=== PATIENT | male | born 1955 | race Caucasian/White ===

== ENCOUNTER 2021-03-11 20:24 | Inpatient (IN) | payer OTHER ==
--- OUTSIDE RECORDS SUMMARY | 2021-03-11 20:27 | XMS REPORT | Continuity of Care Document ---
:1955 Author Organization [facility] Address [address] Gonzalez [address] [place] [id number] Care Team Providers Name Role Phone [phone] Primary Care Physician Unavailable SARBJIT Attending Clinician Unavailable SYSTEM, NOT IN Attending Clinician Unavailable Dustin Edwards MD Attending Clinician Barrington BLANK, K.H. Attending Clinician Pola BLANK Attending Clinician SARBJIT Admitting Clinician Unavailable Payers Payer Name Policy Type Policy Number Effective Date Expiration Date S giancarlo [employer] MED[employer]ARE PPO [id number] 00:00:00 Problems This patient has no known problems. Allergies, Adverse Reactions, Alerts This patient has no known allergies or adverse reactions. Medications This patient has no known medications. Procedures This patient has no known procedures. Encounters Start End Encounter Admission Attending Care Care Encounter Source Date/Time Date/Time Type Type Clinicians Facility Department ID 2020-02-12 Outpatient EL GALILEA SCHAFFER Dexter/Hep/Nu [id number] 09:28:28 KATHRYN perez 2020-01-23 Outpatient SYSTEM, GALILEA CALERO [id number] 12:24:18 PROVIDER Thiago perez 2021-02-11 2021-02-11 Refill MYLA Edwards [id number] 00:00:00 00:00:00 Primo Kimberly [id number] Dustin Santiago [id number] Profdaysi [phone] [address] 2021-02-04 2021-02-04 Refill [facility] [id number] 00:00:00 00:00:00 Primo Harris [id number] [facility] [id number] Professio [phone] [address] 2021-01-14 2021-01-14 [facility] [id number] 00:00:00 00:00:00 Primo Harris [id number] [facility] [id number] Professio [phone] [address] 2021-01-08 2021-01-08 [facility] [id number] 00:00:00 00:00:00 Nils Harris [id number] [place] [id number] Professio [phone] [address] 2021-01-07 2021-01-07 [facility] [id number] 00:00:00 00:00:00 Primo Harris [id number] [facility] [id number] Professio [phone] [address] 2020-12-25 2020-12-25 Telephone [facility] [id number] 00:00:00 00:00:00 Nils Harris [id number] [place] [id number] Professio [phone] [address] 2020-12-17 2020-12-17 Office [facility] [id number] 13:04:46 14:28:21 Visit Stan Harris [id number] [place] [id number] Professio [phone] [facility] 204 [facility] 2020-01-13 2020-01-13 Outpatient GALILEA GOTTLIEB/Hep/Nu [id number] 12:32:19 15:50:00 KATHRYN holland n Results This patient has no known results.
[2021-03-11 22:02] LABS: Basophils % 0.2 % (0-1.3); Hematocrit 28.1 % (39.6-49.0); Lymphocytes % 11.1 % (15.3-44.8); MPV 9.2 fL (7.6-11.3); RBC Red Blood Cell Count 3.07 M/uL (4.33-5.43)
[2021-03-11 22:24] LABS: Blood Morphology Comment NOTED (NOT SEEN); Hypochromasia 1+; Ovalocytes 1+; Platelet Estimate ADEQ; Stomatocytes 1+
[2021-03-11 22:26] LABS: Albumin 4.5 g/dL (3.4-5.0); Bilirubin Direct 0.4 mg/dL (0-0.2); Bilirubin Total 0.9 mg/dL (0.2-1.0); Potassium 4.4 mmol/L (3.5-5.1); Protein, Total 7.6 g/dL (6.4-8.2)
[2021-03-11] MEDS ORDERED: NA CHLORIDE 0.9% 1,000 ML ONE (23:51)
--- NOTE | 2021-03-12 00:26 | EDPHYS ---
Physician Documentation [facility] Name: Narendra Moulton Age: 65 yrs Sex: Male : 1955 Arrival Date: 03/11/2021 Time: 20:26 Bed 23 Private MD: ED Physician Cinda Barnard HPI: 03/12 00:18 This 65 yrs old Male presents to ER via Wheelchair with complaints of sp3 Black/Tarry Stools, Heat Exposure. 00:18 65-year-old male with a history of esophageal cancer currently in remission status post sp3 chemotherapy, hypertension, thyroid dysfunction presents with chief complaint fatigue, dark stools, and decreased energy. This has been going on for approximately 3 to 4 days. Patient also states that he has diffuse abdominal pain. Patient denies headache, neck pain, fever, URI symptoms, chest pain, shortness of breath, back pain, nausea, vomiting, diarrhea, syncope, neuro symptoms, rash, or any other ROS at this time. Remainder of ROS systems are negative.. Historical: - Allergies: 03/11 21:12 No Known Allergies; kg - Home Meds: 21:12 PreserVision AREDS 7,160 unit- 113 mg-100 unit oral tab daily [Active]; gabapentin 300 kg mg oral tab twice a day [Active]; Ambien 10 mg Oral tab 1 tab once daily [Active]; melatonin 10 mg Oral TbDi daily [Active]; acetaminophen 500 mg oral tab every 4-6 hours [Active]; Coricidin HBP Flu 2-15-500 mg oral tab [Active]; Alavert D-12 Allergy-Sinus 5-120 mg oral Tb12 1 tab 2 times per day [Active]; Lexapro 10 mg Oral tab 1 tab once daily [Active]; levothyroxine 88 mcg tab 1 tab once daily [Active]; aspirin 325 mg Oral tab 1 tab once daily [Active]; enalapril maleate 20 mg Oral tab 1 tab 2 times per day [Active]; Vitamin B-1 1000 mg oral TbER daily [Active]; fenofibrate 150 mg oral cap once daily [Active]; Therapeutic Multivit/Mineral Oral tab daily [Active]; omeprazole magnesium 20 mg oral cpDR daily [Active]; Coreg 6.25 mg Oral tab 1 tab 2 times per day [Active]; tamsulosin 0.4 mg oral cap 1 cap once daily [Active]; atorvastatin 20 mg oral tab 1 tab once daily [Active]; - PMHx: 21:12 CA Esophageal; HTN; Thyroid dysfunction; kg - PSHx: 21:12 Hydrocel repair; kg - Immunization history:: Adult Immunizations not up to date, Client reports having NOT received the Covid vaccine. - Social history:: Smoking status: Patient denies any tobacco usage or history of. Patient uses alcohol, on a daily basis. ROS: 03/12 00:20 Eyes: Negative for injury, pain, redness, and discharge, Neck: Negative for injury, sp3 pain, and swelling, Cardiovascular: Negative for chest pain, palpitations, and edema, Respiratory: Negative for shortness of breath, cough, wheezing, and pleuritic chest pain, Back: Negative for injury and pain, Skin: Negative for injury, rash, and discoloration, Neuro: Negative for headache, weakness, numbness, tingling, and seizure, Psych: Negative for depression, anxiety, suicide ideation, homicidal ideation, and hallucinations, Endocrine: Negative for neck swelling, polydipsia, polyuria, polyphagia, and marked weight changes. Constitutional: Positive for fatigue, Negative for body aches, chills, fever, weight loss. Abdomen/GI: Positive for abdominal pain, black/tarry stool, Negative for nausea and vomiting, hematemesis, bowel incontinence. Exam: 00:21 Constitutional: This is a well developed, well nourished patient who is awake, alert, sp3 and in no acute distress. Head/Face: Normocephalic, atraumatic. Eyes: Pupils equal round and reactive to light, extra-ocular motions intact. Lids and lashes normal. Conjunctiva and sclera are non-icteric and not injected. Cornea within normal limits. Periorbital areas with no swelling, redness, or edema. ENT: Nares patent. No nasal discharge, no septal abnormalities noted. External auditory canals are clear. Oropharynx with no redness, swelling, or masses, exudates, or evidence of obstruction, uvula midline. Mucous membranes moist. Neck: Trachea midline, no thyromegaly or masses palpated, and no cervical lymphadenopathy. Supple, full range of motion without nuchal rigidity, or vertebral point tenderness. No Meningismus. Chest/axilla: Normal chest wall appearance and motion. Nontender with no deformity. No lesions are appreciated. Cardiovascular: Regular rate and rhythm with a normal S1 and S2. No gallops, murmurs, or rubs. Normal PMI, no JVD. No pulse deficits. Respiratory: Lungs have equal breath sounds bilaterally, clear to auscultation and percussion. No rales, rhonchi or wheezes noted. No increased work of breathing, no retractions or nasal flaring. Abdomen/GI: Soft, non-tender, with normal bowel sounds. No distension or tympany. No guarding or rebound. No evidence of tenderness throughout. Back: No spinal tenderness. No costovertebral tenderness. Full range of motion. 00:21 Neuro: Awake and alert, GCS 15, oriented to person, place, time, and situation. Cranial nerves II-XII grossly intact. Motor strength 5/5 in all extremities. Sensory grossly intact. Cerebellar exam normal. Normal gait. Psych: Awake, alert, with orientation to person, place and time. Behavior, mood, and affect are within normal limits. 00:21 Skin: Appearance: Color: pale. Vital Signs: 03/11 21:10 Pulse 83; Resp 20; Temp 98.1(O); Pulse Ox 96% on R/A; Weight 83.46 kg (R); Height 5 ft. kg 7 in. (170.18 cm); Pain 5/10; 21:10 BP 102 / 76; kg 23:38 BP 159 / 81; Pulse 95; Resp 18; Pulse Ox 100% on R/A; lp1 03/12 01:00 BP 185 / 70; Pulse 90; Resp 15; Pulse Ox 98% on R/A; lp1 02:00 BP 188 / 74; Pulse 99; Resp 20; Pulse Ox 100% on R/A; Pain 5/10; lp1 03/11 21:10 Body Mass Index 28.82 (83.46 kg, 170.18 cm) kg MDM: 03/11 23:12 Patient medically screened. sp3 03/12 00:22 Data reviewed: vital signs, nurses notes, lab test result(s), radiologic studies. ED sp3 course: Patient is pale and likely has a slow GI bleed. Hemoglobin is 9.6. Coagulation studies are pending. CT scan of the abdomen pelvis is also pending. Patient's sodium is 125 and is receiving normal saline. This will likely lead to further heme dilution. Type and screen has been done we will transfuse patient if needed. Further consultation with surgery and/or GI to be made by inpatient team. Protonix drip also started.. 03/11 21:21 Order name: Basic Metabolic Panel; Complete Time: 23:10 kg 03/11 21:21 Order name: CBC with Diff; Complete Time: 23:10 kg 03/11 21:21 Order name: Hepatic Function; Complete Time: 23:10 kg 03/11 21:21 Order name: Lipase; Complete Time: 23:10 kg 03/11 21:21 Order name: Type And Screen kg 03/11 22:16 Order name: Manual Differential; Complete Time: 23:10 EDMS 03/11 23:24 Order name: Lactate sp3 03/11 23:25 Order name: COVID-19 : Document "Date of Symptom Onset" if Symptomatic.: preadmit sp3 03/11 23:38 Order name: PT-INR; Complete Time: 00:44 la1 03/11 23:38 Order name: Ptt, Activated; Complete Time: 00:44 la1 03/12 00:38 Order name: ABO/RH no charge; Complete Time: 00:44 EDMS 03/12 00:44 Order name: Urine Sodium Random la1 03/12 00:44 Order name: Osmolality, Serum la1 03/11 21:21 Order name: IV Saline Lock; Complete Time: 23:08 kg 03/11 21:21 Order name: Labs collected and sent; Complete Time: 23:08 kg 03/11 23:24 Order name: CT Abd/Pelvis - PO and IV Contrast sp3 03/12 00:44 Order name: Urine Osmolality la1 03/12 00:46 Order name: SARS-COV-2 RT PCR EDMS 03/12 02:35 Order name: CBC with Automated Diff EDMS 03/12 02:50 Order name: Comprehensive Metabolic Panel EDMS 03/12 02:50 Order name: T4 Free EDMS 03/12 02:50 Order name: Magnesium EDMS 03/12 02:50 Order name: Thyroid Stimulating Hormone EDMS Administered Medications: 03/11 23:28 Drug: NS 0.9% 1000 ml Route: IV; Rate: 1 bolus; Site: left antecubital; lp1 03/12 01:08 Follow up: IV Status: Completed infusion; IV Intake: 1000ml lp1 00:24 Drug: ProTONIX (pantoprazole) 40 mg Route: IVP; Site: left antecubital; lp1 02:00 Follow up: Response: No adverse reaction lp1 00:35 Drug: ProTONIX (pantoprazole) 8 mg/hr Route: IV; Rate: 25 ml/hr; Site: left hand; lp1 02:00 Follow up: IV Status: Infusion continued upon admission lp1 Disposition Summary: 03/12/21 00:25 Hospitalization Ordered Hospitalization Status: Inpatient Admission sp3 Provider: Phuc Moore sp3 Condition: Stable sp3 Problem: new sp3 Symptoms: are unchanged sp3 Bed/Room Type: Standard sp3 Location: Telemetry/MedSurg (Inpatient)(03/12/21 02:48) cg Room Assignment: [facility](03/12/21 02:48) Diagnosis - Melena sp3 - GI Bleed/ Gastrointestinal hemorrhage, unspecified sp3 - Hypo-osmolality and hyponatremia sp3 Forms: - Medication Reconciliation Form sp3 - SBAR form sp3 Signatures: Dispatcher [employer] [facility] Alondra Cobos RN RN lp1 Carlos García FNP-C OIL FIELD RIG BUILDER-Cla1 Zayra Montana RN RN Valentine Vallejo RN RN Cinda Barnard sp3 Corrections: (The following items were deleted from the chart) 03/11 23:49 23:25 CORONAVIRUS ordered. [facility] 03/12 00:25 00:22 ED course: Patient is pale and likely has a slow GI bleed. Hemoglobin is 9.6. sp3 Coagulation studies are pending. CT scan of the abdomen pelvis is also pending. Patient's sodium is 125 and is receiving normal saline. This will likely lead to further heme dilution. Type and screen has been done we will transfuse patient if needed. Further consultation with surgery and/or GI to be made by inpatient team. . sp3 01:04 00:25 Telemetry/MedSurg (Inpatient) sp3 cg 01:04 00:25 sp3 cg 02:48 01:04 [facility] ER HOLD cg cg 02:48 01:04 ERHOLD- cg cg
--- NOTE | 2021-03-12 00:26 | ER ---
Nurse's Notes [facility] Name: Narendra Moulton Age: 65 yrs Sex: Male : 1955 Arrival Date: 03/11/2021 Time: 20:26 Bed 23 Private MD: Diagnosis: Melena;GI Bleed/ Gastrointestinal hemorrhage, unspecified;Hypo-osmolality and hyponatremia Presentation: 03/11 21:10 Chief complaint: Patient states: Buddy tarry stools with bright red streaks, nausea x kg 1 day. Coronavirus screen: Client denies travel out of the [place] in the last 14 days. At this time, unable to obtain information related to travel outside the [place] At this time, the client does not indicate any symptoms associated with coronavirus-19. Ebola Screen: Patient negative for fever greater than or equal to 101.5 degrees Fahrenheit, and additional compatible Ebola Virus Disease symptoms Patient denies exposure to infectious person. Patient denies travel to an Ebola-affected area in the 21 days before illness onset. Initial Sepsis Screen: Does the patient meet any 2 criteria? No. Patient's initial sepsis screen is negative. Does the patient have a suspected source of infection? No. Patient's initial sepsis screen is negative. Risk Assessment: Do you want to hurt yourself or someone else? Patient reports no desire to harm self or others. Onset of symptoms was March 10, 2021. 21:10 Method Of Arrival: Wheelchair kg 21:10 Acuity: GIN 3 kg Triage Assessment: 21:12 General: Appears in no apparent distress. Behavior is calm, cooperative, quiet. Pain: kg Complains of pain in back, abdomen, Headache Pain radiates to Generalized. GI: Reports lower abdominal pain, upper abdominal pain, bloody stool, nausea. Historical: - Allergies: 21:12 No Known Allergies; kg - Home Meds: 21:12 PreserVision AREDS 7,160 unit- 113 mg-100 unit oral tab daily [Active]; gabapentin 300 kg mg oral tab twice a day [Active]; Ambien 10 mg Oral tab 1 tab once daily [Active]; melatonin 10 mg Oral TbDi daily [Active]; acetaminophen 500 mg oral tab every 4-6 hours [Active]; Coricidin HBP Flu 2-15-500 mg oral tab [Active]; Alavert D-12 Allergy-Sinus 5-120 mg oral Tb12 1 tab 2 times per day [Active]; Lexapro 10 mg Oral tab 1 tab once daily [Active]; levothyroxine 88 mcg tab 1 tab once daily [Active]; aspirin 325 mg Oral tab 1 tab once daily [Active]; enalapril maleate 20 mg Oral tab 1 tab 2 times per day [Active]; Vitamin B-1 1000 mg oral TbER daily [Active]; fenofibrate 150 mg oral cap once daily [Active]; Therapeutic Multivit/Mineral Oral tab daily [Active]; omeprazole magnesium 20 mg oral cpDR daily [Active]; Coreg 6.25 mg Oral tab 1 tab 2 times per day [Active]; tamsulosin 0.4 mg oral cap 1 cap once daily [Active]; atorvastatin 20 mg oral tab 1 tab once daily [Active]; - PMHx: 21:12 CA Esophageal; HTN; Thyroid dysfunction; kg - PSHx: 21:12 Hydrocel repair; kg - Immunization history:: Adult Immunizations not up to date, Client reports having NOT received the Covid vaccine. - Social history:: Smoking status: Patient denies any tobacco usage or history of. Patient uses alcohol, on a daily basis. Screenin:21 Abuse screen: Denies threats or abuse. Denies injuries from another. Nutritional kg screening: No deficits noted. Tuberculosis screening: No symptoms or risk factors identified. Fall Risk None identified. Assessment: 23:38 General: Appears in no apparent distress. Behavior is appropriate for age. Pain: lp1 Complains of pain in back Pain currently is 5 out of 10 on a pain scale. Neuro: Level of Consciousness is awake, alert, obeys commands, Oriented to person, place, time, situation. Cardiovascular: Patient's skin is warm and dry. Respiratory: Respiratory effort is even, unlabored. GI: Abdomen is round Bowel sounds present X 4 quads. Reports black tarry stool. : No signs and/or symptoms were reported regarding the genitourinary system. EENT: No signs and/or symptoms were reported regarding the EENT system. Derm: Skin is intact, Skin is dry, Skin is pale. Musculoskeletal: No deficits noted. 03/12 00:26 Reassessment: Carlso García ENGINEER BYPRODUCT at bedside to discuss results and plan of care. lp1 01:30 Reassessment: Patient ambulated to bathroom, reported to have BM, black in color. lp1 Vital Signs: 03/11 21:10 Pulse 83; Resp 20; Temp 98.1(O); Pulse Ox 96% on R/A; Weight 83.46 kg (R); Height 5 ft. kg 7 in. (170.18 cm); Pain 5/10; 21:10 BP 102 / 76; kg 23:38 BP 159 / 81; Pulse 95; Resp 18; Pulse Ox 100% on R/A; lp1 03/12 01:00 BP 185 / 70; Pulse 90; Resp 15; Pulse Ox 98% on R/A; lp1 02:00 BP 188 / 74; Pulse 99; Resp 20; Pulse Ox 100% on R/A; Pain 5/10; lp1 03/11 21:10 Body Mass Index 28.82 (83.46 kg, 170.18 cm) kg ED Course: 03/11 20:26 Patient arrived in ED. cf2 21:12 Triage completed. kg 21:23 Inserted saline lock: 20 gauge in left antecubital area, using aseptic technique. kg ,using aseptic technique. BY Katty HENDERSON Blood collected. 23:07 Cinda Barnard is Attending Physician. sp3 23:11 Alondra Cobos, RN is Primary Nurse. lp1 23:28 Patient has correct armband on for positive identification. Bed in low position. Call lp1 light in reach. potline monitor on. Pulse ox on. NIBP on. 23:39 Arm band placed on right wrist. lp1 03/12 00:24 Phuc Moore DO is Hospitalizing Provider. sp3 00:35 Inserted saline lock: 22 gauge in left hand, using aseptic technique. lp1 01:09 No provider procedures requiring assistance completed. Patient admitted, IV remains in lp1 place. Administered Medications: 03/11 23:28 Drug: NS 0.9% 1000 ml Route: IV; Rate: 1 bolus; Site: left antecubital; lp1 03/12 01:08 Follow up: IV Status: Completed infusion; IV Intake: 1000ml lp1 00:24 Drug: ProTONIX (pantoprazole) 40 mg Route: IVP; Site: left antecubital; lp1 02:00 Follow up: Response: No adverse reaction lp1 00:35 Drug: ProTONIX (pantoprazole) 8 mg/hr Route: IV; Rate: 25 ml/hr; Site: left hand; lp1 02:00 Follow up: IV Status: Infusion continued upon admission lp1 Intake: 01:08 IV: 1000ml; Total: 1000ml. lp1 Outcome: 00:25 Decision to Hospitalize by Provider. sp3 02:01 Condition: stable lp1 02:01 Instructed on the need for admit. 02:30 Admitted to ER Hold. Please see [facility] for further documentation. lp1 03:53 Patient left the ED. lp1 Signatures: Alondra Cobos RN RN lp1 Arianne Perez cf2 Valentine Vallejo RN RN kg Cinda Barnard sp3
[2021-03-12 00:31] LABS: Protime INR 1.09
[2021-03-12] MEDS ORDERED: PANTOPRAZOLE 40 MG INJ ONE (00:43)
[2021-03-12] MEDS ORDERED: NA CHLORIDE 0.9% 250 ML ONE ×2 (00:44→17:26)
--- NOTE | 2021-03-12 00:59 | P.HP ---
Certification for Inpatient Patient admitted to: Inpatient With expected LOS: >2 Midnights Patient will require the following post-hospital care: None Practitioner: I am a practitioner with admitting privileges, knowledge of patient current condition, hospital course, and medical plan of care. Services: Services provided to patient in accordance with Admission requirements found in Title 42 Section 412.3 of the Code of Federal Regulations Patient History Date of Service: 03/12/21 Primary Care Provider: Dr. Santoyo Reason for admission: Melena, GIB, Hyponatremia History of Present Illness: 65-year-old male with history of esophageal [id number], hypertension, hypothyroidism, chronic hyponatremia and history of gastric ulcers presents the emergency department for abdominal pain, melena. Patient reports over the course last 2 days he has had multiple black tarry stools with some bright red streaks noted, patient reports he has had GI bleed in the past and was diagnosed with gastric ulcers. Patient was evaluated in the emergency department, labs were significant for hemoglobin 9.6 and adequate 28.1 sodium 125 chloride 91 BUN 32 GFR 70 glucose [address] abdomen pelvis with p.o. and IV contrast pending. Patient does admit to drinking daily approximately 2-4 Siders sometimes more. Last drink was 2 days ago. Patient mildly tremulous, mildly tachycardic with heart rate around 90, blood pressure stable at this time. Type and screen obtained patient started on PPI drip. ED very wishes to admit for further evaluation and management. - Past Medical/Surgical History -: Esophageal [id number] in remission -: Gastric ulcers -: Hyponatremia -: Hypothyroidism -: Hypertension -: Alcohol abuse Past Surgical History: Reviewed- Non-Contributory - Family History Family History: Reviewed- Non-Contributory - Social History Smoking Status: Never smoker Alcohol use: Yes CD- Drugs: No Caffeine use: Yes Place of Residence: Home Review of Systems 10-point ROS is otherwise unremarkable General: Weakness, Malaise Gastrointestinal: Nausea, Abdominal Pain, Melena, As per HPI Physical Examination - Physical Exam General: Alert, In no apparent distress, Oriented x3, Other (Anxious, mildly tremulous) HEENT: Atraumatic, PERRLA, Other (Mucous membranes dry, pale), EOMI, Sclerae nonicteric Neck: Supple, 2+ carotid pulse no bruit, No LAD, Without JVD or thyroid abnormality Respiratory: Clear to auscultation bilaterally, Normal air movement Cardiovascular: Regular rate/rhythm, Normal S1 S2 Capillary refill: <2 Seconds Gastrointestinal: Normal bowel sounds, No tenderness Musculoskeletal: No tenderness Integumentary: No rashes Neurological: Normal gait, Normal speech, Normal strength at 5/5 x4 extr, Normal tone, Normal affect Lymphatics: No axilla or inguinal lymphadenopathy - Studies Laboratory Data (last 24 hrs) 03/12/21 00:04: PT 12.6 H, INR 1.09, APTT 24.1 L 03/11/21 21:22: WBC 8.90, Hgb 9.6 L, Hct 28.1 L, Plt Count 219 03/11/21 21:22: Sodium 125 L, Potassium 4.4, BUN 32 H, Creatinine 1.06, Glucose 142 H, Total Bilirubin 0.9, AST 69 H, ALT 55, Alkaline Phosphatase 48, Lipase 114 Assessment and Plan - Plan Assessment: Acute blood loss anemia secondary to upper GI bleed/melena Mild hyponatremia Alcohol abuse Hypertension Hypothyroidism History of esophageal [id number] in remission Plan: Acute blood loss anemia secondary to upper GI bleed/melena: Continue PPI drip, every 6 hours hemoglobin hematocrits. Patient did receive 1 L normal saline bolus in the emergency department his but some drop in hemoglobin/hematocrit. Transfuse to maintain hemoglobin greater than 8. GI consulted, patient n.p.o. in anticipation of possible endoscopy. Patient reports history of gastric ulcers. Mild hyponatremia: Patient with history of hyponatremia in the past, chronic alcohol abuse, patient received 1 L normal saline bolus in the ER will repeat chemistry in the morning. Obtain urine sodium urine osmolality serum osmolality. Consult nephrology as necessary if sodium does not improve or worsens. Alcohol abuse: Patient anxious, mildly tremulous at this time last drink 2 days ago reports drinking between 2 and 4 Siders per day, possibly more. Will order alcohol withdrawal assessments and as needed Ativan. Hypertension: Obtain and continue medications when appropriate Hypothyroidism: Obtain and continue medications when appropriate History of esophageal [id number] in remission: Stable, CT pending. DVT PPX: SCD Code status: Full Discharge Plan: Home Plan to discharge in: 48 Hours - Advance Directives Does patient have a Living Will: No Does patient have a Durable POA for Healthcare: No - Code Status/Comfort Care Code Status Assessed: Yes (Full code) Critical Care: No Time Spent Managing Pts Care (In Minutes): 55
[2021-03-12] MEDS ORDERED: LORazepam 2 MG/ML VIAL IV PRN ×2 (02:03→14:40)
[2021-03-12] MEDS ORDERED: ONDANSETRON 4 MG/2 ML VIAL IV PRN (02:03)
[2021-03-12] MEDS: PANTOPRAZOLE INJ 80 MG in NA CHLORIDE 0.9% 250 ML IV SCH ×3 (02:03→22:03)
[2021-03-12 02:22] LABS: Basophils % 0.3 % (0-1.3); Hematocrit 23.7 % (39.6-49.0); Lymphocytes % 14.9 % (15.3-44.8); MPV 9.2 fL (7.6-11.3); RBC Red Blood Cell Count 2.57 M/uL (4.33-5.43)
[2021-03-12] MEDS ORDERED: NA CHLORIDE 0.9% 1,000 ML ONE (02:37)
[2021-03-12 02:48] LABS: Albumin 4.1 g/dL (3.4-5.0); Bilirubin Total 0.8 mg/dL (0.2-1.0); Potassium 3.7 mmol/L (3.5-5.1); Protein, Total 6.9 g/dL (6.4-8.2); Thyroid Stimulating Hormone 1.12 uIU/mL (0.360-3.740)
[2021-03-12 02:50] LABS: Magnesium 1.4 mg/dL (1.8-2.4)
[2021-03-12 02:51] VITALS: BMI 32.1
[2021-03-12] MEDS ORDERED: Magnesium Sulfate 2gm IVPB 2 G/50 ML BAG IV ONE ×2 (03:00→03:28)
[2021-03-12] MEDS: NA CHLORIDE 0.9% 1,000 ML IV SCH ×2 (03:09→15:23)
[2021-03-12] MEDS ORDERED: LORazepam 2 MG/ML VIAL ONE (03:28)
[2021-03-12] MEDS ORDERED: POTASSIUM CL SA 10 MEQ TAB PO ONE (05:53)
--- NOTE | 2021-03-12 06:15 | P.PN ---
Subjective Date of Service: 03/12/21 Primary Care Provider: Dr. Santoyo Chief Complaint: Melena, GIB, Hyponatremia Subjective: Improving Physical Examination - Vital Signs Temperature: 97.2 F Blood Pressure: 156/79 Pulse: 102 Respirations: 18 Pulse Ox (%): 93 - Studies Laboratory Data (last 24 hrs) 03/12/21 00:04: PT 12.6 H, INR 1.09, APTT 24.1 L 03/11/21 21:22: WBC 8.90, Hgb 9.6 L, Hct 28.1 L, Plt Count 219 03/11/21 21:22: Sodium 125 L, Potassium 4.4, BUN 32 H, Creatinine 1.06, Glucose 142 H, Total Bilirubin 0.9, AST 69 H, ALT 55, Alkaline Phosphatase 48, Lipase 114 Assessment & Plan Discharge Plan: Home Plan to discharge in: 48 Hours Physician Review Additional Text: COVID: negative CT Scan: FINDINGS: Lung bases: Clear. Liver: Mild hepatic steatosis. Gallbladder and biliary: Normal gallbladder. Unremarkable biliary tree. Pancreas: Normal. Spleen: Normal. Adrenal glands: Normal adrenal glands. Kidneys: Normal kidneys Stomach and Small Bowel: Normal stomach. There are a few air-fluid levels in the small bowel. Urinary bladder: Normal. Prostate/Male Urogenital: Normal. Colon and Appendix: Severe descending and sigmoid colon diverticulosis. No evidence of appendicitis. Retroperitoneum and lymph nodes: Normal. Vascular: Moderate multivessel calcified atherosclerosis. Peritoneal cavity: No ascites or free air. Musculoskeletal and soft tissues: Soft tissues are unremarkable. No aggressive bone lesions. Chronic appearing T9 compression deformity. IMPRESSION: 1. A few air-fluid levels in the small bowel are nonspecific but may be seen with mild enteritis or ileus. 2. Severe colonic diverticulosis. 3. Mild hepatic steatosis. 4. Moderate atherosclerosis. Physical exam: General: Alert, In no apparent distress, Oriented x3, Other (Anxious, mildly tremulous) HEENT: Atraumatic, PERRLA, Other (Mucous membranes dry, pale), EOMI, Sclerae nonicteric Neck: Supple, 2+ carotid pulse no bruit, No LAD, Without JVD or thyroid abnormality Respiratory: Clear to auscultation bilaterally, Normal air movement Cardiovascular: Regular rate/rhythm, Normal S1 S2 Capillary refill: <2 Seconds Gastrointestinal: Normal bowel sounds, No tenderness Musculoskeletal: No tenderness Integumentary: No rashes Neurological: Normal gait, Normal speech, Normal strength at 5/5 x4 extr, Normal tone, Normal affect Lymphatics: No axilla or inguinal lymphadenopathy Impression: Acute blood loss anemia secondary to upper GI bleed/melena Hyponatremia Alcohol abuse Hypertension Hypothyroidism 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 Continue with IV fluids. Patient without pain. Hemoglobin low this am. Will transfuse one unit. Repeat H/H still low. Will transfuse up to 2 units and reassess. Case discussed with GI. Gi is planning for EGD. Maintain Hemoglobin above 7.5. I will turn the service over to the hospitalist team. I will go over the plan of care with him. Dissipate home in the next 48 hours. Hyponatremia: Improved with IV fluids. Will monitor. Nephrology consulted to assist. Alcohol abuse: Stable. Will provide medication for agitation. Continue with Thiamine IV. Hypertension: Provide IV medication as needed. Hypothyroidism: Obtain and verify home medication. Will need to restart once reconciled History of esophageal [id number] in remission: Patient seen at [facility] in the distant past. Await EGD findings. Fatty Liver: Education provided. DVT PPX: SCD Code status: Full Discharge Plan: Home Time Spent Managing Pts Care (In Minutes): 55
--- NOTE | 2021-03-12 07:24 | P.CNS ---
Primary Care Provider: Dr. Santoyo Chief Complaint: Melena, GIB, Hyponatremia History of Present Illness: Pt is a 65 y/o male with oast medical hx of hypertension. alocholism, presented with complaints of vomiting of dark bloody material with asom e abdominal pain. Pt has preseted similarly i viry past and was diagnosed with gastric ulcer at the time approximately 2 to 3 years ago. Pt reports cntinued drinking. At that time he was noted to be hypoatremic adn eas admitted i the hospital for a while. This admission pt noted to be hyponatremic in the 124, improved to 128 with ivf hydration. Renal has been consulted for hyponatremic. Pt reports occasional nausea, and vomiting. Allergies No Known Allergies Allergy (Unverified 03/12/21 02:03) Home Medications: Gabapentin 300 mg PO BID 03/13/21 Hydralazine [Apresoline*] 25 mg PO TID #90 tab 03/13/21 Hydrocodone 7.5/APAP 325 [[place] 7.5/325 mg] 1 tab PO Q6H PRN #30 tab 03/13/21 Lidocaine 4% Patch [Lidoderm 5% Patch*] 1 patch TOP DAILY #20 patch 03/13/21 Pantoprazole [Protonix Tab] 40 mg PO BID #60 tab 03/13/21 Sodium Chloride Tab [Sodium Chloride*] 2 gm PO BIDWM #60 tab 03/13/21 Sucralfate [Carafate] 10 ml PO Q6H #1200 ml 03/13/21 - Past Medical/Surgical History Diabetic: No -: Esophageal [id number] in remission -: Gastric ulcers -: Hyponatremia -: Hypothyroidism -: Hypertension -: Alcohol abuse -: R wrist sx -: vasectomy -: Lasik eye sx - Family History Mother Medical History: Heart disease - Social History Alcohol use: Yes CD- Drugs: No Caffeine use: Yes Place of Residence: Home Review of Systems General: Unremarkable Eyes: Unremarkable ENT: Unremarkable Respiratory: Unremarkable Cardiovascular: Unremarkable Gastrointestinal: Unremarkable Genitourinary: Unremarkable Musculoskeletal: Unremarkable Integumentary: Unremarkable Neurological: Unremarkable Physical Examination Temp Pulse Resp BP Pulse Ox 97.2 F 102 H 18 156/79 H 93 03/12/21 06:15 03/12/21 06:15 03/12/21 06:15 03/12/21 06:15 03/12/21 06:15 General: Alert, In no apparent distress HEENT: Atraumatic, PERRLA, Mucous membr. moist/pink, EOMI, Sclerae nonicteric Neck: Supple, 2+ carotid pulse no bruit, No LAD, Without JVD or thyroid abnormality Respiratory: Clear to auscultation bilaterally, Normal air movement Cardiovascular: Regular rate/rhythm, Normal S1 S2 Gastrointestinal: Normal bowel sounds, No tenderness Musculoskeletal: No tenderness Integumentary: No rashes Neurological: Normal gait, Normal speech, Normal tone, Normal affect Lymphatics: No axilla or inguinal lymphadenopathy Laboratory Data (last 24 hrs) 03/12/21 00:04: PT 12.6 H, INR 1.09, APTT 24.1 L 03/11/21 21:22: WBC 8.90, Hgb 9.6 L, Hct 28.1 L, Plt Count 219 03/11/21 21:22: Sodium 125 L, Potassium 4.4, BUN 32 H, Creatinine 1.06, Glucose 142 H, Total Bilirubin 0.9, AST 69 H, ALT 55, Alkaline Phosphatase 48, Lipase 114 Conclusions/Impression: Problems Hyponatremia suspect secondary to hypovolemia. Possible siadh given possible v omiting GI bleed Hypertension Plan Continue ivf BMP STAT and q 6h Monitor for overcorrection Goal correction 131 within 24hrs. Strict i/o Check urine eletrolytes and osmolality Will also check tsh given hx of hypothyroidism Thank you for this interesting consult. Will continue to follow.
[2021-03-12 07:35] LABS: Urine Appearance CLEAR (Clear); Urine Bilirubin NEGATIVE (Negative); Urine Blood NEGATIVE (Negative); Urine Color YELLOW (Yellow); Urine Glucose NEGATIVE (Negative); Urine Protein NEGATIVE (Negative); Urine Specific Gravity 1.025 (1.005-1.030); Urine Urobilinogen 0.2 mg/dL (0.2-1.0); Urine pH 6.5 (5.0-7.0)
[2021-03-12 07:36] LABS: Urine Microscopic Reflex NO UMIC
[2021-03-12] MEDS ORDERED: PNEUMOCOCCAL VACCINE 0.5 ML IMVAC ONE (08:00)
[2021-03-12] MEDS: METOPROLOL TARTRATE 5 MG/5 ML INJ IV PRN (08:53)
[2021-03-12] MEDS ORDERED: THIAMINE HCL 100 MG TABLET PO SCH (09:00)
[2021-03-12] MEDS: FOLIC ACID 1 MG in NA CHLORIDE 0.9% 50 ML IV SCH (09:00)
[2021-03-12] MEDS ORDERED: FOLIC ACID 5 MG/ML VIAL IVP SCH (09:00)
[2021-03-12] MEDS ORDERED: KCL 20 MEQ/100 mL IVPB 20 MEQ/100 ML BAG IV ONE (09:00)
[2021-03-12] MEDS: LIDOCAINE 4% PATCH TOP SCH ×2 (09:29→21:37)
[2021-03-12] MEDS: HYDROMORPHONE HCL 0.5 MG/0.5 ML INJ IV PRN ×3 (09:29→22:02)
--- NOTE | 2021-03-12 11:10 | RAD REPORT ---
EXAM DESCRIPTION: CT - Abdomen Pelvis W Contrast - 03/12/2021 6:52 am COMPARISON: None. CLINICAL HISTORY: [facility] MA[facility] melena;Abd pain TECHNIQUE: CT of the abdomen and pelvis was acquired with IV contrast material. Coronal and sagitt al reconstructions were obtained. Automated exposure control was utilized on this examination as a dose lowering technique. FINDINGS: Lung bases: Clear. Liver: Mild hepatic steatosis. Gallbladder and biliary: Normal gallbladder. Unremarkable biliary tree. Pancreas: Normal. Spleen: Normal. Adrenal glands: Normal adrenal glands. Kidneys: Normal kidneys Stomach and Small Bowel: Normal stomach. There are a few air-fluid levels in the small bowel. Urinary bladder: Normal. Prostate/Male Urogenital: Normal. Colon and Appendix: Severe descending and sigmoid colon diverticulosis. No evidence of appendicitis. Retroperitoneum and lymph nodes: Normal. Vascular: Moderate multivessel calcified atherosclerosis. Peritoneal cavity: No ascites or free air. Musculoskeletal and soft tissues: Soft tissues are unremarkable. No aggressive bone lesions. Chroni c appearing T9 compression deformity. IMPRESSION: 1. A few air-fluid levels in the small bowel are nonspecific but may be seen with mild e nteritis or ileus. 2. Severe colonic diverticulosis. 3. Mild hepatic steatosis. 4. Moderate atherosclerosis. Electronically signed by: Wong Marshall MD 03/12/2021 3:17 AM CDT Due to temporary technical issues with the PACS/Fluency reporting system, reports are being signed by the in house radiologist without review as a courtesy to ensure prompt reporting. The interpreting r adiologist is fully responsible for the content of the report.
[2021-03-12] MEDS ORDERED: Ringers Lactate 1,000 ML IV ONE (14:30)
[2021-03-12] MEDS ORDERED: propofoL 200 MG/20 ML VIAL IV ONE (15:26)
[2021-03-12] MEDS ORDERED: EPINEPHRINE/PF 1 MG/ML AMP ONE (15:30)
[2021-03-12] MEDS ORDERED: LIDOCAINE 1% MPF 5 ML VIAL ONE (15:45)
--- NOTE | 2021-03-12 16:18 | ENDO RPT ---
[address], [address] EGD PROCEDURE REPORT EXAM DATE: 03/12/2021 PATIENT NAME: Narendra Moulton MR#: [id number] BIRTHDATE: 1955 ATTENDING: Zechariah Cornejo Dr STATUS: inpatient - 7 PRIZER HAND: Migdalia Bradford RN and Radha Sierra CST INDICATIONS: The patient is a 65 yr old Male here for an EGD due to melenic bleeding, anemia, and abdominal pain PROCEDURE PERFORMED: EGD with biopsy MEDICATIONS: Per Anesthesia. TOPICAL ANESTHETIC: none CONSENT: The patient understands the risks and benefits of the procedure and understands that these risks include, but are not limited to: sedation, allergic reaction, infection, perforation and/or bleeding. Alternative means of evaluation and treatment include, among others: physical exam, x-rays, and/or surgical intervention. The patient elects to proceed with this endoscopic procedure. DESCRIPTION OF PROCEDURE: During intra-op preparation period all mechanical medical equipment was checked for proper function. Hand hygiene and appropriate measures for infection prevention was taken. Procedure, possible complications, and alternatives including but not limited to the possibility of bleeding, perforation, tear, infection, sepsis, need for surgery, need for blood transfusion, and anesthesia related complications were explained to the patient. After the risks, benefits and alternatives of the procedure were thoroughly explained, Informed consent was verified, confirmed and timeout was successfully executed by the treatment team. The patient was placed in the left lateral position. The patient was anesthetized with topical anesthesia. Through the anesthetized oropharyngeal area, the scope was passed without any difficulty. The Pentax EG-[id number] ([id number]) endoscope was introduced through the mouth and advanced to the third portion of the duodenum. Retroflexed views revealed a moderate sized hiatal hernia. The gastroscope was then slowly withdrawn and removed. A moderate sized hiatal hernia was found Mild Atrophic gastritis was found in the antrum. Multiple biopsies were obtained and sent to pathology. 2.2 cm horizontal figure 8 shaped ulcer with central small vessel versus heme spot was found in the antrum between the pylorus and angulus (non-bleeding). Duodenitis was found in the bulb of the duodenum. ADVERSE EVENTS: There were no complications. IMPRESSIONS: 1. Moderate sized hiatal hernia 2. Mild atrophic gastritis in the antrum, s/p biopsies 3. 2.2 cm horizontal figure 8 shaped ulcer with central small vessel versus heme spot in the antrum between the pylorus and angulus (non-bleeding) 4. Duodenitis in the bulb of the duodenum RECOMMENDATIONS: 1. await biopsy results 2. acid suppression therapy REPEAT EXAM: Return in 3 month(s) for EGD. Zechariah Cornejo Dr eSigned: Zechariah Cornejo Dr 03/12/2021 4:18 PM cc: Phuc Moore D.O. CPT CODES: ICD9 CODES: PATIENT NAME: Narendra Moulton MR#: [id number]
--- NOTE | 2021-03-12 18:16 | RAD REPORT ---
EXAM DESCRIPTION: Erika Hawkins And Ning (2 Views)03/12/2021 6:07 pm CLINICAL HISTORY: Esophageal cancer/lung disorder COMPARISON: None FINDINGS: The lungs appear clear of acute infiltrate. The heart is normal size IMPRESSION: No acute abnormalities displayed
[2021-03-12] MEDS ORDERED: FUROSEMIDE 20 MG/ 2ML VIAL IV ONE (19:49)
[2021-03-12 21:13] LABS: Hematocrit 28.5 % (39.6-49.0)
[2021-03-12 21:28] LABS: Magnesium 2.4 mg/dL (1.8-2.4); Potassium 3.8 mmol/L (3.5-5.1)
[2021-03-13] MEDS: HYDROMORPHONE HCL 0.5 MG/0.5 ML INJ IV PRN ×4 (02:59→21:39)
[2021-03-13] MEDS: NA CHLORIDE 0.9% 1,000 ML IV SCH (04:43)
[2021-03-13 05:33] LABS: Absolute Lymphocytes (CBC) 0.7 K/uL (0.7-4.9); Basophils % 0.3 % (0-1.3); Hematocrit 25.5 % (39.6-49.0); Lymphocytes % 16.9 % (15.3-44.8); MPV 8.8 fL (7.6-11.3); RBC Red Blood Cell Count 2.77 M/uL (4.33-5.43)
[2021-03-13 05:46] LABS: ALT/SGPT 46 U/L (12-78); AST/SGOT 69 U/L (15-37); Albumin 4.3 g/dL (3.4-5.0); Alkaline Phosphatase 41 U/L (45-117); BUN Blood Urea Nitrogen 13 mg/dL (7-18); Bicarbonate 23 mmol/L (21-32); Bilirubin Total 0.6 mg/dL (0.2-1.0); Glucose Level 92 mg/dL (74-106); Magnesium 2.2 mg/dL (1.8-2.4); Potassium 3.7 mmol/L (3.5-5.1); Protein, Total 7.1 g/dL (6.4-8.2); Sodium Level 127 mmol/L (136-145)
[2021-03-13 06:51] VITALS: O2SAT 99
[2021-03-13] MEDS: PANTOPRAZOLE INJ 80 MG in NA CHLORIDE 0.9% 250 ML IV SCH ×2 (07:27→17:26)
[2021-03-13] MEDS: FOLIC ACID 1 MG in NA CHLORIDE 0.9% 50 ML IV SCH (08:53)
[2021-03-13] MEDS: SODIUM CHLORIDE 1 GM TAB PO SCH ×2 (08:53→16:32)
[2021-03-13] MEDS: THIAMINE 200 MG/2 ML INJ IVP SCH (08:53)
[2021-03-13] MEDS: METOPROLOL TARTRATE 5 MG/5 ML INJ IV PRN (09:07)
[2021-03-13] MEDS ORDERED: HYDRALAZINE HCL 20 MG/ML VIAL IV PRN (11:51)
[2021-03-13] MEDS ORDERED: HYDRALAZINE HCL 20 MG/ML VIAL IV ONE (15:08)
[2021-03-13] MEDS ORDERED: METOPROLOL TARTRATE 5 MG/5 ML INJ IV PRN (15:08)
[2021-03-13] MEDS ORDERED: HYDROCODONE/APAP 7.5/325 MG TAB PO ONE (16:13)
[2021-03-13] MEDS: SUCRALFATE 1 GM TABLET PO SCH ×2 (16:32→20:14)
[2021-03-13] MEDS: LIDOCAINE 4% PATCH TOP SCH (16:36)
[2021-03-13] MEDS: METOPROLOL TAR 25 MG TAB PO SCH (17:26)
[2021-03-14] MEDS: HYDROMORPHONE HCL 0.5 MG/0.5 ML INJ IV PRN ×4 (01:33→13:48)
[2021-03-14] MEDS: PANTOPRAZOLE INJ 80 MG in NA CHLORIDE 0.9% 250 ML IV SCH ×2 (04:03→05:33)
[2021-03-14] MEDS: METOPROLOL TAR 25 MG TAB PO SCH (05:36)
[2021-03-14 05:51] LABS: Absolute Lymphocytes (CBC) 0.8 K/uL (0.7-4.9); Basophils % 0.2 % (0-1.3); Hematocrit 26.1 % (39.6-49.0); Lymphocytes % 16.6 % (15.3-44.8); MPV 8.8 fL (7.6-11.3)
[2021-03-14 06:05] LABS: ALT/SGPT 61 U/L (12-78); AST/SGOT 110 U/L (15-37); Albumin 4.2 g/dL (3.4-5.0); Alkaline Phosphatase 43 U/L (45-117); BUN Blood Urea Nitrogen 8 mg/dL (7-18); Bicarbonate 21 mmol/L (21-32); Bilirubin Total 0.6 mg/dL (0.2-1.0); Glucose Level 84 mg/dL (74-106); Magnesium 2.3 mg/dL (1.8-2.4); Potassium 3.9 mmol/L (3.5-5.1); Protein, Total 7.2 g/dL (6.4-8.2); Sodium Level 128 mmol/L (136-145)
[2021-03-14] MEDS ORDERED: POTASSIUM CL SA 10 MEQ TAB PO ONE (09:00)
[2021-03-14] MEDS: THIAMINE 200 MG/2 ML INJ IVP SCH (09:00)
[2021-03-14] MEDS: FOLIC ACID 1 MG in NA CHLORIDE 0.9% 50 ML IV SCH (09:30)
[2021-03-14] MEDS: SODIUM CHLORIDE 1 GM TAB PO SCH (09:31)
[2021-03-14] MEDS: SUCRALFATE 1 GM TABLET PO SCH ×2 (09:31→12:29)
[2021-03-14 09:53] VITALS: TEMP 98
[2021-03-14 11:46] LABS: Blood Morphology Comment NOT SEEN (NOT SEEN); Platelet Estimate DECR
--- NOTE | 2021-03-14 12:46 | P.PN ---
Subjective Date of Service: 03/17/21 Primary Care Provider: Dr. Santoyo Chief Complaint: Melena, GIB, Hyponatremia Subjective: Improving (No GI bleeding / melena >> hematochezia noted. Large 2.2 cm gastric ulcer in antrum on EGD 03-12-21.) Review of Systems 10-point ROS is otherwise unremarkable General: Malaise (Improved. ) Physical Examination - Vital Signs Temperature: 98.0 F Blood Pressure: 131/71 Pulse: 66 Respirations: 18 Pulse Ox (%): 98 - Physical Exam General: Alert, In no apparent distress, Oriented x3, Cooperative HEENT: Atraumatic, Normocephalic, PERRLA, EOMI Neck: Supple Respiratory: Normal air movement Cardiovascular: Normal pulses Gastrointestinal: Soft and benign, No tenderness, No masses, No rebound, No guarding Neurological: Normal speech, Normal strength at 5/5 x4 extr Assessment And Plan - Current Problems (Diagnosis) (1) GI bleed Status: Acute Comment: Improved. (2) Melena Status: Acute (3) Hematochezia Status: Acute (4) Anemia Status: Acute (5) Gastric ulcer Status: Acute (6) Chronic hyponatremia Status: Acute (7) Generalized abdominal pain Status: Acute - Plan REC: 1) continue PPI therapy, & discharge on bid dosing 2) advance diet to GI soft 3) GI clinic f/u in 1-2 weeks 4) repeat EGD in 3 months to ensure large gastric ulcer healed Physician Review Additional Text: COVID: negative CT Scan: FINDINGS: Lung bases: Clear. Liver: Mild hepatic steatosis. Gallbladder and biliary: Normal gallbladder. Unremarkable biliary tree. Pancreas: Normal. Spleen: Normal. Adrenal glands: Normal adrenal glands. Kidneys: Normal kidneys Stomach and Small Bowel: Normal stomach. There are a few air-fluid levels in the small bowel. Urinary bladder: Normal. Prostate/Male Urogenital: Normal. Colon and Appendix: Severe descending and sigmoid colon diverticulosis. No evidence of appendicitis. Retroperitoneum and lymph nodes: Normal. Vascular: Moderate multivessel calcified atherosclerosis. Peritoneal cavity: No ascites or free air. Musculoskeletal and soft tissues: Soft tissues are unremarkable. No aggressive bone lesions. Chronic appearing T9 compression deformity. IMPRESSION: 1. A few air-fluid levels in the small bowel are nonspecific but may be seen with mild enteritis or ileus. 2. Severe colonic diverticulosis. 3. Mild hepatic steatosis. 4. Moderate atherosclerosis. Physical exam: General: Alert, In no apparent distress, Oriented x3, Other (Anxious, mildly tremulous) HEENT: Atraumatic, PERRLA, Other (Mucous membranes dry, pale), EOMI, Sclerae nonicteric Neck: Supple, 2+ carotid pulse no bruit, No LAD, Without JVD or thyroid abnormality Respiratory: Clear to auscultation bilaterally, Normal air movement Cardiovascular: Regular rate/rhythm, Normal S1 S2 Capillary refill: <2 Seconds Gastrointestinal: Normal bowel sounds, No tenderness Musculoskeletal: No tenderness Integumentary: No rashes Neurological: Normal gait, Normal speech, Normal strength at 5/5 x4 extr, Normal tone, Normal affect Lymphatics: No axilla or inguinal lymphadenopathy Impression: Acute blood loss anemia secondary to upper GI bleed/melena Hyponatremia Alcohol abuse Hypertension Hypothyroidism History of esophageal [id number] in remission Fatty liver Plan: Acute blood loss anemia secondary to upper GI bleed/melena: Continue with Protonix drip. Continue with IV fluids. Patient without pain. Hemoglobin low this am. Will transfuse one unit. Repeat H/H still low. Will transfuse up to 2 units and reassess. Case discussed with GI. Gi is planning for EGD. Maintain Hemoglobin above 7.5. I will turn the service over to the hospitalist team. I will go over the plan of care with him. Dissipate home in the next 48 hours. Hyponatremia: Improved with IV fluids. Will monitor. Nephrology consulted to assist. Alcohol abuse: Stable. Will provide medication for agitation. Continue with Thiamine IV. Hypertension: Provide IV medication as needed. Hypothyroidism: Obtain and verify home medication. Will need to restart once reconciled History of esophageal [id number] in remission: Patient seen at [facility] in the distant past. Await EGD findings. Fatty Liver: Education provided. DVT PPX: SCD Code status: Full Discharge Plan: Home
--- NOTE | 2021-03-14 15:51 | P.PN ---
Subjective Date of Service: 03/13/21 Patient is doing well with no new complaints. Clinically patient feels much better. Review of Systems 10-point ROS is otherwise unremarkable Physical Examination - Vital Signs Temperature: 98.0 F Blood Pressure: 131/71 Pulse: 66 Respirations: 18 Pulse Ox (%): 98 - Physical Exam General: Alert, In no apparent distress, Oriented x3 HEENT: Atraumatic, PERRLA, EOMI Neck: Supple, JVD not distended Respiratory: Clear to auscultation bilaterally, Normal air movement Cardiovascular: Regular rate/rhythm, Normal S1 S2 Gastrointestinal: Normal bowel sounds, No tenderness Musculoskeletal: No tenderness Integumentary: No rashes Neurological: Normal speech, Normal tone, Normal affect Lymphatics: No axilla or inguinal lymphadenopathy - Studies Medications List Reviewed: Yes Assessment & Plan - Problems (Diagnosis) (1) Chronic hyponatremia Current Visit: Yes Status: Acute (2) GI bleed Current Visit: Yes Status: Acute (3) Gastric ulcer Current Visit: Yes Status: Acute - Plan Plan: 1. Continue with IV hydration and PPI drip 2. Continue with IV antibiotics 3. Continue with pain control 4. Advanced diet as tolerated 5. GI consultation appreciated; outpatient follow-up 6. Serial H&H, and we will monitor LFTs and lipase along with electrolytes. 7. GI and DVT prophylaxis Discharge Plan: Home Plan to discharge in: Greater than 2 days - Advance Directives Does patient have a Living Will: Yes Does patient have a Durable POA for Healthcare: Yes - Code Status/Comfort Care Code Status Assessed: Yes Code Status: Full Code Critical Care: No Time Spent Managing PTS Care (In Minutes): 35
--- NOTE | 2021-03-14 15:53 | P.DS ---
Discharge Date: 03/14/21 Primary Care Provider: Dr. Santoyo Disposition: ROUTINE DISCHARGE Discharge Condition: GOOD Reason for Admission: Melena, GIB, Hyponatremia - Problems (1) Chronic hyponatremia Status: Acute (2) GI bleed Status: Acute (3) Gastric ulcer Status: Acute Brief History of Present Illness: 65-year-old male with history of esophageal [id number], hypertension, hypothyroidism, chronic hyponatremia and history of gastric ulcers presents the emergency department for abdominal pain, melena. Patient reports over the course last 2 days he has had multiple black tarry stools with some bright red streaks noted, patient reports he has had GI bleed in the past and was diagnosed with gastric ulcers. Patient was evaluated in the emergency department, labs were significant for hemoglobin 9.6 and adequate 28.1 sodium 125 chloride 91 BUN 32 GFR [address] abdomen pelvis with p.o. and IV contrast pending. Patient does admit to drinking daily approximately 2-4 Siders sometimes more. Last drink was 2 days ago. Patient mildly tremulous, mildly ta chycardic with heart rate around 90, blood pressure stable at this time. Type and screen obtained patient started on PPI drip. ED very wishes to admit for further evaluation and management. Hospital Course: Patient EGD which showed gastric ulcer disease. Look like it had a small clot; no active bleeding. Looked like the source of bleeding. Patient was given Protonix drip. Patient's hemoglobin have been stable. Slowly advance diet. Patient is doing well hemoglobin is stable. At this time, patient is stable for discharge home. Vital Signs/Physical Exam: Temp Pulse Resp BP Pulse Ox 98.0 F 66 18 131/71 98 03/14/21 15:51 03/14/21 15:51 03/14/21 15:51 03/14/21 15:51 03/14/21 15:51 General: Alert, In no apparent distress, Oriented x3 Laboratory Data at Discharge: WBC 4.70 K/uL (4.3-10.9) D 03/14/21 05:02 Hgb 9.1 g/dL (13.6-17.9) L 03/14/21 05:02 Hct 26.1 % (39.6-49.0) L 03/14/21 05:02 Plt Count 140 K/uL (152-406) L 03/14/21 05:02 PT 12.6 SECONDS (9.5-12.5) H 03/12/21 00:04 INR 1.09 03/12/21 00:04 APTT 24.1 SECONDS (24.3-36.9) L 03/12/21 00:04 Sodium 128 mmol/L (136-145) L 03/14/21 05:02 Potassium 3.9 mmol/L (3.5-5.1) 03/14/21 05:02 BUN 8 mg/dL (7-18) 03/14/21 05:02 Creatinine 0.71 mg/dL (0.55-1.3) 03/14/21 05:02 Glucose 84 mg/dL (74-106) 03/14/21 05:02 Magnesium 2.3 mg/dL (1.8-2.4) 03/14/21 05:02 Total Bilirubin 0.6 mg/dL (0.2-1.0) 03/14/21 05:02 AST 110 U/L (15-37) H 03/14/21 05:02 ALT 61 U/L (12-78) 03/14/21 05:02 Alkaline Phosphatase 43 U/L (45-117) L 03/14/21 05:02 Lipase 114 U/L (73-393) 03/11/21 21:22 Physician Discharge Instructions: OK TO DC IV AND DC HOME FOLLOW-UP WITH PRIMARY CARE PROVIDER IN 1-2 WEEKS FOLLOW-UP WITH GI IN 1-2 WEEKS RETURN TO THE ER IF symptoms worsen CALL or TEXT DR. ANDERSEN AT [phone] IF ANY QUESTIONS REGARDING HOSPITAL STAY. PLEASE CALL THE FLOOR AT [phone] IF ANY MEDICATION OR NURSING QUESTIONS. Diet: AHA Activity: Fall precautions Followup: Zechariah Cornejo MD [ASSOCIATE-ACTIVE - CAN ADMIT] - Primo Edwards MD [Primary Care Provider] - Time spent managing pt's care (in minutes): 35
--- NOTE | 2021-03-14 17:48 | P.PN ---
Subjective Date of Service: 03/13/21 Primary Care Provider: Dr. Santoyo Chief Complaint: Melena, GIB, Hyponatremia Subjective: No new changes (No issues) Review of Systems 10-point ROS is otherwise unremarkable Physical Examination - Vital Signs Temperature: 98.0 F Blood Pressure: 136/85 Pulse: 83 Respirations: 18 Pulse Ox (%): 98 - Physical Exam General: Alert, In no apparent distress HEENT: Atraumatic, PERRLA, EOMI Neck: Supple, JVD not distended Respiratory: Clear to auscultation bilaterally, Normal air movement Cardiovascular: Regular rate/rhythm, Normal S1 S2 Capillary refill: <2 Seconds Gastrointestinal: Normal bowel sounds, No tenderness Musculoskeletal: No tenderness Integumentary: No rashes Neurological: Normal speech, Normal tone, Normal affect - Studies Medications List Reviewed: Yes Assessment & Plan Physician Review Additional Text: COVID: negative CT Scan: FINDINGS: Lung bases: Clear. Liver: Mild hepatic steatosis. Gallbladder and biliary: Normal gallbladder. Unremarkable biliary tree. Pancreas: Normal. Spleen: Normal. Adrenal glands: Normal adrenal glands. Kidneys: Normal kidneys Stomach and Small Bowel: Normal stomach. There are a few air-fluid levels in the small bowel. Urinary bladder: Normal. Prostate/Male Urogenital: Normal. Colon and Appendix: Severe descending and sigmoid colon diverticulosis. No evidence of appendicitis. Retroperitoneum and lymph nodes: Normal. Vascular: Moderate multivessel calcified atherosclerosis. Peritoneal cavity: No ascites or free air. Musculoskeletal and soft tissues: Soft tissues are unremarkable. No aggressive bone lesions. Chronic appearing T9 compression deformity. IMPRESSION: 1. A few air-fluid levels in the small bowel are nonspecific but may be seen with mild enteritis or ileus. 2. Severe colonic diverticulosis. 3. Mild hepatic steatosis. 4. Moderate atherosclerosis. Physical exam: General: Alert, In no apparent distress, Oriented x3, Other (Anxious, mildly tremulous) HEENT: Atraumatic, PERRLA, Other (Mucous membranes dry, pale), EOMI, Sclerae nonicteric Neck: Supple, 2+ carotid pulse no bruit, No LAD, Without JVD or thyroid abnormality Respiratory: Clear to auscultation bilaterally, Normal air movement Cardiovascular: Regular rate/rhythm, Normal S1 S2 Capillary refill: <2 Seconds Gastrointestinal: Normal bowel sounds, No tenderness Musculoskeletal: No tenderness Integumentary: No rashes Neurological: Normal gait, Normal speech, Normal strength at 5/5 x4 extr, Normal tone, Normal affect Lymphatics: No axilla or inguinal lymphadenopathy Impression: Acute blood loss anemia secondary to upper GI bleed/melena Hyponatremia Alcohol abuse Hypertension Hypothyroidism History of esophageal [id number] in remission Fatty liver Plan Uine studies suggestive of siadh D/C IVF 1L fluid restriction Start sodium chloride tablets. If unimproving, will try demecocycline Normal sodium level goal of 135 Strict i/o Thank you for this interesting consult. Will continue to follow.
--- NOTE | 2021-03-14 17:52 | P.PN ---
Subjective Date of Service: 03/13/21 Primary Care Provider: Dr. Santoyo Chief Complaint: Melena, GIB, Hyponatremia Subjective: Improving Physical Examination - Vital Signs Temperature: 98.0 F Blood Pressure: 136/85 Pulse: 83 Respirations: 18 Pulse Ox (%): 98 - Physical Exam General: Alert, In no apparent distress HEENT: Atraumatic, PERRLA, EOMI Neck: Supple, JVD not distended Respiratory: Clear to auscultation bilaterally, Normal air movement Cardiovascular: Regular rate/rhythm, Normal S1 S2 Gastrointestinal: Normal bowel sounds, No tenderness Musculoskeletal: No tenderness Integumentary: No rashes Neurological: Normal speech, Normal tone, Normal affect Lymphatics: No axilla or inguinal lymphadenopathy - Studies Medications List Reviewed: Yes Assessment & Plan Physician Review Additional Text: COVID: negative CT Scan: FINDINGS: Lung bases: Clear. Liver: Mild hepatic steatosis. Gallbladder and biliary: Normal gallbladder. Unremarkable biliary tree. Pancreas: Normal. Spleen: Normal. Adrenal glands: Normal adrenal glands. Kidneys: Normal kidneys Stomach and Small Bowel: Normal stomach. There are a few air-fluid levels in the small bowel. Urinary bladder: Normal. Prostate/Male Urogenital: Normal. Colon and Appendix: Severe descending and sigmoid colon diverticulosis. No evidence of appendicitis. Retroperitoneum and lymph nodes: Normal. Vascular: Moderate multivessel calcified atherosclerosis. Peritoneal cavity: No ascites or free air. Musculoskeletal and soft tissues: Soft tissues are unremarkable. No aggressive bone lesions. Chronic appearing T9 compression deformity. IMPRESSION: 1. A few air-fluid levels in the small bowel are nonspecific but may be seen with mild enteritis or ileus. 2. Severe colonic diverticulosis. 3. Mild hepatic steatosis. 4. Moderate atherosclerosis. Physical exam: General: Alert, In no apparent distress, Oriented x3, Other (Anxious, mildly tremulous) HEENT: Atraumatic, PERRLA, Other (Mucous membranes dry, pale), EOMI, Sclerae nonicteric Neck: Supple, 2+ carotid pulse no bruit, No LAD, Without JVD or thyroid abn ormality Respiratory: Clear to auscultation bilaterally, Normal air movement Cardiovascular: Regular rate/rhythm, Normal S1 S2 Capillary refill: <2 Seconds Gastrointestinal: Normal bowel sounds, No tenderness Musculoskeletal: No tenderness Integumentary: No rashes Neurological: Normal gait, Normal speech, Normal strength at 5/5 x4 extr, Normal tone, Normal affect Lymphatics: No axilla or inguinal lymphadenopathy Impression: Acute blood loss anemia secondary to upper GI bleed/melena Hyponatremia Alcohol abuse Hypertension Hypothyroidism History of esophageal [id number] in remission Fatty liver Plan Uine studies suggestive of siadh D/C IVF 1L fluid restriction Start sodium chloride tablets. Normal sodium level goal of 135 Strict i/o Will continue to follow.
[2021-03-14] MEDS ORDERED: DEMECLOCYCLINE HCL 150 MG TABLET PO SCH (21:00)
--- NOTE | 2021-03-15 06:01 | CON ---
Date of Consultation: 03/12/2021 Reason For Consultation: GI bleed with melena, anemia, hemoglobin down to 7.2, and generalized abdom inal pain. History Of Present Illness: The patient is a 65-year-old white male with history of gastric ulcers d ocumented with prior GI bleed. It appears approximately 5 years ago. Esophageal cancer approximatel y 10 years ago, treated at [facility], chemotherapy, hypertension, chronic hyponatremia, hypothyroid ism and alcohol abuse. The patient presented to the hospital with GI bleed, melena over the past 2 d ays prior to admission with black tarry stools with some red streaks noted in stool as well. CT scan of the abdomen with contrast is largely unremarkable. The patient has a history of chronic hyponatr emia for unclear reasons. The patient has generalized abdominal pain prior to admission, has largely resolved since admission to the hospital. The patient does not report any significant pain currentl y, though it is reported in his chart. The patient takes aspirin every day for generalized good health preventative and also for headache, w hich has been a problem recently. The patient also still abuses alcohol drinking 2-4 a da y or more. Past Medical History: Significant for gastric ulcers approximately 5 years ago with an upper endosco py at that time. He does take an aspirin a day and some ibuprofen for headache. Esophageal cancer d iagnosed in 2006, "in remission". He was treated with chemotherapy at that time at [facility]. Hyp onatremia idiopathic, it is not clear, what reason, why he has chronic hyponatremia. Liver numbers a re not remarkable. CT scan did not reveal any significant cirrhosis, no ascites. No history of hepa tic encephalopathy or chronic end-stage liver disease characteristics that would go along with hypona tremia. Therefore, he may have lung disorder or some other reason. Hypothyroidism, hypertension, alcohol abuse. Medications: . Medications in the hospital include folic acid, Dilaudid, lidocaine, Ativan , magnesium, metoprolol, saline, IV fluids, Zofran, pneumonia vaccine, Protonix, IV drip and thiamin. Social History: He is , 4 kids. No tobacco. Alcohol chronically. He is still drinking 2-4 more drinks per day. The patient said he has cut back recently though. Family History: Father of old age at 94. He was in [place]. The patient states mother of congestive heart failure at the age of 87 years of age. Review of Systems: The patient has generalized abdominal pain, which has largely resolved, melena, black stools with le e spot streaks of redness and also possible hematochezia. He denies any melena with coffee-grounds e mesis, nausea, vomiting, fevers, chills, night sweats, heat or cold intolerance, chest pain, shortnes s of breath, seizure, syncope, lower extremity muscle aches, joint aches, backaches, depression, anxi ety. Physical Examination: Vital Signs: The patient is 5 foot 7 inch, 205 pounds. BMI of 32 kg/m2. Temperature 97.2 degrees F ahrenheit, pulse 102, respirations 18, blood pressure 156/79, O2 saturation 93% to 100% on room air. General: Obese male, lying in bed, in no acute distress. HEENT: Normocephalic, atraumatic. Anicteric. Pupils equal, round, and reactive to light. Extraocu lar movements intact. Oropharynx is clear. Neck: Supple, no masses. Respirations: Clear to auscultation bilaterally. Cardiac: Regular rate and rhythm. No gallops. Abdomen: Positive bowel sounds. Soft, nontender, nondistended. No hepatosplenomegaly. Extremities: No clubbing, cyanosis, or edema. 2+ pulses. Neuro: Alert and oriented x3. Grossly nonfocal. 5/5 motor sensation . Laboratory Data: The patient has a white count of 6.8 earlier today at 2 o'clock in the morning. He moglobin then was 8.9, down to 7.2 at 12:15 today with an MCV of 92, platelet count of 168, polys of 73%, lymphocytes 15%; monocytes 11%. PT of 12.6, INR of 1.1, PTT of 24.1. The patient has a sodium 129, potassium 4.0, chloride 100, bicarb 22, BUN of 18, creatinine of 0.89, glucose 120, lactate 4.3, normal calcium of 7.9, magnesium 1.4, total bilirubin 0.8. AST of 52, ALT of 45, alkaline phosphata se 43, total protein 6.9, albumin 12.1. TSH of 1.12, free T4 0.94. Lipase normal at 114. UA was largely negative. Serologies: COVID-[address] abdomen and pelvis shows a few air-fluid levels in small bowel, nonspecific with mild enteritis, ileitis, severe colo kirsty diverticulosis, mild hepatic steatosis with mild fatty liver, moderate atherosclerosis. Impression: 1.Melena, gastrointestinal bleed with weakness and fatigue. The patient on aspirin and NSAIDs at [facility] for headaches. He has a history of peptic ulcer disease, gastric ulcers in the past, he reports. He EGD. 2.Anemia. Hemoglobin 9.6 to 8.0 this morning. It is down to 7.2 at approximately noon at 12:15 tod ay EGD with history of gastric ulcers and on the NSAIDs and aspirin. 3.Denies abdominal pain, largely resolved since admission. 4.Hyponatremia, it is idiopathic, it is unknown why. His liver numbers are not that impressive with an albumin of over 4. PT, INR normal, total bilirubin normal, creatinine normal, so what it seems t hat he may be has a long source such as SIADH as the etiology for his hyponatremia or other. 5.History of gastric ulcers years ago. 6.Melena and history of esophageal cancer 10 years ago, with chemotherapy treatment at [facility]. 7.Hypothyroidism. 8.Hypertension. 9.Chronic hyponatremia. 10.Alcohol abuse. Recommendations: 1.EGD, PPI therapy. 2.IV fluids resuscitation with serial H and H, and transfuse p.r.n. 3.N.p.o. 4.No aspirin or NSAIDs. 5.Check chest x-ray for possible SIADH with unexplained hyponatremia. May consider renal consult to hyponatremia is unexplained. BARBARA/PARAM Voice ID: [id number] Report ID: [id number]
[2021-03-17 10:02] VITALS: BP 131/71
== END 2021-03-14 17:16 | disposition home or self-care (01) | DRG 378 ==
LOC: ER 20:24 → ERHOLD 03-12 00:43 → 2ND 03-12 03:13
PROVIDERS: ADMIT Family Medicine; ATTEND Family Medicine
PROC: 30233N1 Transfusion of Nonautologous Red Blood Cells into Peripheral Vein, Percutaneous Approach (ICD-10-PCS; 2021-03-12)
PROC: 0DB68ZX Excision of Stomach, Via Natural or Artificial Opening Endoscopic, Diagnostic (ICD-10-PCS; principal; 2021-03-12 14:00)
DX: K25.0 Acute gastric ulcer with hemorrhage (principal); D62 Acute posthemorrhagic anemia; E22.2 Syndrome of inappropriate secretion of antidiuretic hormone; K29.40 Chronic atrophic gastritis without bleeding; K29.80 Duodenitis without bleeding; F10.10 Alcohol abuse, uncomplicated; I10 Essential (primary) hypertension; E03.9 Hypothyroidism, unspecified; K76.0 Fatty (change of) liver, not elsewhere classified; K44.9 Diaphragmatic hernia without obstruction or gangrene; R45.1 Restlessness and agitation; Z85.01 Personal history of malignant neoplasm of esophagus; Z20.822 Contact with and (suspected) exposure to COVID-19
CPT/HCPCS: 36415; 36430; 71046; 74177; 80048; 80053; 80076; 81003; 83605; 83690; 83735; 83930; 83935; 84300; 84439; 84443; 85014; 85018; 85025; 85610; 85730; 86850; 86900; 86901; 88305; 88312; 96361; 96365; 99285; C9113; J0171; J0360; J1170; J1940; J2704; J3411; J3475; J3480; J7030; J7050; J7120; P9016; Q9967; U0003